=== PATIENT | female | born 1965 | race Caucasian/White ===

== ENCOUNTER 2018-07-28 20:59 | Emergency (ER) | payer OTHER ==
[~2018-07-28] VITALS: Ht 157.5 cm; Wt 69.9 kg
--- NOTE | 2018-07-28 21:10 | NUR ---
Ambulated to ER Room 5A with c/o pain, redness and swelling at right index finger. Noted some pus at affected area.
--- NOTE | 2018-07-28 21:12 | NUR ---
Seen and evaluated by Dr. Finley.
[2018-07-28] MEDS ORDERED: SULFAMETH/TRIMETH 800/160 MG TABLET PO ONE (21:30)
[2018-07-28] MEDS ORDERED: CEFTRIAXONE 1 G VIAL IM ONE (21:30)
[2018-07-28] MEDS ORDERED: CEFTRIAXONE 1 G VIAL ONE (21:34)
[2018-07-28] MEDS ORDERED: SULFAMETH/TRIMETH 800/160 MG TABLET ONE (21:35)
--- NOTE | 2018-07-28 21:56 | NUR ---
Patient discharged to home in stable conditon. Written and verbal after care instructions given. Prescriptions given. Patient verbalizes understanding of instructions.
== END 2018-07-28 22:00 | disposition home or self-care (01) ==
LOC: ER 20:59
DX: L03.011 Cellulitis of right finger (principal)
CPT/HCPCS: 96372; 99283; J0696; A4663

== ENCOUNTER 2018-07-30 18:56 | Emergency (ER) | payer OTHER ==
[~2018-07-30] VITALS: Ht 157.5 cm; Wt 69.9 kg
[2018-07-30] MEDS ORDERED: LIDOCAINE 4% TOPICAL 50 ML BOTTLE ONE (19:28)
[2018-07-30] MEDS ORDERED: LET TOPICAL SOLUTION 8 ML UDC ONE (19:29)
[2018-07-30] MEDS ORDERED: LET TOPICAL SOLUTION 8 ML UDC TP ONE (19:30)
--- NOTE | 2018-07-30 20:08 | NUR ---
Pt ambulated to ER w c/o wound check to right index finger, redness/swelling noted. pt states she was seen here on 07/28/18 and was given rx for bactrim, cephalexin, & norco. at bedside. no acute distress noted.
[2018-07-30] MEDS ORDERED: MUPIROCIN 2% OINT 22 GM TUBE ONE (20:15)
--- NOTE | 2018-07-30 20:30 | NUR ---
Patient discharged to home in stable conditon. Written and verbal after care instructions given. Patient verbalizes understanding of instructions. Pt ambulated out of ER w . All belongings w pt. VSS. NAD noted.
[2018-07-30] MEDS ORDERED: MUPIROCIN 2% OINT 22 GM TUBE TP ONE (20:45)
[2018-07-30 20:52] VITALS: BP 109/77
== END 2018-07-30 20:53 | disposition home or self-care (01) ==
LOC: ER 18:56
DX: L03.011 Cellulitis of right finger (principal)
CPT/HCPCS: A4663

== ENCOUNTER 2018-09-26 19:40 | Emergency (ER) | payer OTHER ==
[~2018-09-26] VITALS: Ht 157.5 cm; Wt 69.9 kg
--- NOTE | 2018-09-26 19:57 | NUR ---
Pt. ambulated into ED w/ c/o anxiety/SOB/dizziness since yesterday, A/Ox4, RR even and unlabored, speaks in clear and complete sentences, VSS
--- NOTE | 2018-09-26 19:58 | NUR ---
Teofilo mckenna in [facility] - 09/26/18 at 2058 by BAL MD at [facility],
--- NOTE | 2018-09-26 20:24 | NUR ---
Patient discharged to home in stable conditon. Written and verbal after care instructions given. Patient verbalizes understanding of instructions. Pt. d/c w/ prescription per MD order, d/c papers signed, ID band removed, all belongings w/ pt., instructed not to drive, ambulated off unit w/ steady gait, NAD
--- NOTE | 2018-09-26 20:24 | NUR ---
Note vivianone in [facility] - 09/26/18 at 2058 by [id number] Patient discharged to home in stable conditon. Written and verbal after care instructions given. Patient verbalizes understanding of instructions. Pt. d/c w/ prescription per MD order, d/c papers signed, all belongings w/ pt., ID band removed, ambualted off unit w/ steady gait, instructed not to drive, NAD
== END 2018-09-26 20:31 | disposition home or self-care (01) ==
LOC: ER 19:42
DX: F41.9 Anxiety disorder, unspecified (principal); F41.0 Panic disorder [episodic paroxysmal anxiety]
CPT/HCPCS: 93005; A4663